=== PATIENT | male | born 1960 | race American Indian/Alaskan Native ===

== ENCOUNTER 2018-11-21 14:39 | Inpatient (IN) | payer MEDICARE ==
[2018-11-21 16:01] LABS: BASO # 0.1 K/uL (0.0-0.2); BASO % 1.7 % (0.0-2.0); EOS # 0.1 K/uL (0.0-0.7); LYMPH # 1.5 K/uL (1.0-4.3); LYMPH % 24.1 % (20.0-40.0); MEAN CORPUSCULAR HEMOGLOBIN 29.5 pg (27.0-31.0); MEAN CORPUSCULAR HGB CONC 32.3 g/dL (33.0-37.0); MEAN PLATELET VOLUME 8.4 fL (7.2-11.7); MONO # 0.6 K/uL (0.0-0.8); MONO % 10.4 % (0.0-10.0); NEUT # 3.8 K/uL (1.8-7.0); NEUT % 62.8 % (50.0-75.0); NRBC % 0.1 % (0.0-2.0); RBC 4.56 Mil/uL (4.40-5.90)
[2018-11-21 16:06] LABS: HEMOGLOBIN 13.5 g/dL (12.0-18.0); MEAN CELL VOLUME 91.4 fL (80.0-94.0)
[2018-11-21 16:13] LABS: ALB/GLOB RATIO 1.1 (1.0-2.1); ALBUMIN 3.8 g/dL (3.5-5.0); BLOOD UREA NITROGEN 19 mg/dL (9-20); CALCIUM 8.4 mg/dl (8.6-10.4); GFR NON-AFRICAN AMERICAN 57
[2018-11-21 16:19] LABS: ALT/SGPT 29 U/L (21-72); AST/SGOT 55 U/L (17-59)
[2018-11-21 16:24] LABS: B-TYPE NATRIURETIC PEPTIDE 6520 pg/mL (0-900)
[2018-11-21] MEDS ORDERED: Iodixanol 320 MG/ML 100 ML BOTTLE IV ONE (16:47)
--- NOTE | 2018-11-21 17:37 | RAD ---
Date of service: 11/21/2018 PROCEDURE: CHEST RADIOGRAPH, 1 VIEW HISTORY: SOB COMPARISON: 03/25/2016 FINDINGS: LUNGS: Pulmonary vascular congestion/pulmonary edema. No discrete infiltrates. PLEURA: No pneumothorax or pleural fluid seen. CARDIOVASCULAR: No aortic atherosclerotic calcification present. Cardiomegaly. No evidence of acute, significant cardiovascular disease. Position/ configuration of pacemaker OSSEOUS STRUCTURES: No significant abnormalities. VISUALIZED UPPER ABDOMEN: Normal. OTHER FINDINGS: None. IMPRESSION: Cardiomegaly/CHF with pulmonary edema present.
--- NOTE | 2018-11-21 18:44 | CT ---
Date of service: 11/21/2018 PROCEDURE: CT Chest with contrast (Pulmonary Angiogram) HISTORY: Shortness of breath. Rule out PE. COMPARISON: None available. TECHNIQUE: Axial computed tomography images were obtained of the chest in the pulmonary arterial phase of enhancement. Coronal and sagittal reformatted images were created and reviewed. Intravenous contrast dose: Radiation dose: Total exam DLP = 594.34 mGy-cm. This CT exam was performed using one or more of the following dose reduction techniques: Automated exposure control, adjustment of the mA and/or kV according to patient size, and/or use of iterative reconstruction technique. FINDINGS: Note the study is slightly limited due to streak and beam hardening artifact arising from the left upper extremity which has not been moved from the field of view. This study is further limited by suboptimal opacification of the pulmonary arteries. PULMONARY ARTERIES: No definitive large central filling defects however the segmental and subsegmental branches are poorly opacified some of which are in fact are unopacified. The possibility of a distal branch pulmonary embolus cannot be excluded on this exam. AORTA: Ascending thoracic aorta measures approximately the 3.1 cm and descending thoracic aorta measures approximately 3.0 cm. No significant atherosclerotic calcified plaque. Pulmonary trunk measures approximately 3.9 cm. Rule out underlying pulmonary arterial hypertension. No acute findings. No thoracic aortic aneurysm. No aortic atherosclerotic calcification or mural plaque present. LUNGS: There appears to be mild pulmonary venous congestive changes with patchy areas of ground-glass opacity seen in the upper and lower lobes. PLEURAL SPACES: Unremarkable. No effusion or pneumothorax. HEART: Heart is markedly enlarged. No significant pericardial effusion. . LYMPH NODES: There are multiple small nonspecific mediastinal and prevascular lymph nodes. Trachea is midline and patent with no large central endoluminal lesions. BONES, CHEST WALL: Unremarkable. No fracture or destructive lesion OTHER FINDINGS: Bilateral changes of gynecomastia. IMPRESSION: Study due to streak and beam hardening artifact as well as suboptimal injection all opacification of the pulmonary arteries. No definitive large central filling defects however the segmental and subsegmental branches are poorly opacified some of which are in fact are unopacified. The possibility of a distal branch pulmonary embolus cannot be excluded on this exam. Mild pulmonary venous congestive changes with patchy ground-glass on opacity seen throughout the upper and lower lobes.
--- NOTE | 2018-11-21 20:26 | C.PDOC ---
History Of Present Illness 58 year old male presents to the ED for evaluation of dyspnea on exertion and shortness of breath which began 1-2 weeks ago. Patient denies chest pain. Patient has a past medical history of CHF with questionable compliance with medications. He denies fever, chills, cough. Chief Complaint (Nursing): Shortness Of Breath History Per: Patient History/Exam Limitations: no limitations Onset/Duration Of Symptoms: Other (1-2 weeks ) Current Symptoms Are (Timing): Still Present Quality: denies: "Pain" Current Respiratory Medications: See Home Med List Associated Symptoms: denies: Fever, Chills, Chest Pain, Bloody Cough, Productive Cough Additional History Per: Patient Past Medical History Reviewed: Historical Data, Nursing Documentation, Vital Signs Vital Signs: Last Vital Signs Temp 97.9 F 11/21/18 20:19 Pulse 108 H 11/21/18 20:19 Resp 24 11/21/18 20:19 BP 112/80 11/21/18 20:19 Pulse Ox 98 11/21/18 20:19 - Medical History PMH: CHF, HTN Surgical History: Pacemaker (insertion and reinsertion due to failure.) - [facility] Procedures BONE MARROW BIOPSY (08/17/05) CLOSURE SKIN & SUBCUTANEOUS NEC (04/20/02) CYSTOSCOPY NEC (08/17/05) LYMPHATIC STRUCT BIOPSY (08/17/05) MAGNETIC RESONANCE IMAGING OF BRAIN AND BRAIN STEM (04/29/05) MAGNETIC RESONANCE IMAGING OF SPINAL CANAL (11/30/06) OTH NONOPER CARD AND VASC MEASURE (07/25/13) OTHER C.A.T. SCAN (08/17/05) RETROGRADE PYELOGRAM (08/17/05) SPINAL TAP (04/29/05) URETERAL CATHETERIZATION (08/17/05) Family History: States: Unknown Family Hx - Social History Hx Alcohol Use: No Hx Substance Use: No - Immunization History Hx Tetanus Toxoid Vaccination: No Hx Influenza Vaccination: No Hx Pneumococcal Vaccination: No Review Of Systems Constitutional: Negative for: Fever, Chills Cardiovascular: Negative for: Chest Pain Respiratory: Positive for: Shortness of Breath, Other (dyspnea on exertion ). Negative for: Cough Physical Exam - Physical Exam Appears: Non-toxic, No Acute Distress Skin: Normal Color, Warm, Dry Head: Atraumatic, Normacephalic Eye(s): bilateral: Normal Inspection Oral Mucosa: Moist Neck: Supple Chest: Symmetrical, No Deformity, No Tenderness Cardiovascular: Rhythm Regular, No Murmur Respiratory: Rales (at bilateral bases ), No Rhonchi, No Wheezing Gastrointestinal/Abdominal: Soft, No Tenderness, No Guarding, No Rebound Extremity: Normal ROM, Capillary Refill (less than 2 seconds ), Other (2+ pitting edema to bilateral lower extremities ) Pulses: Left Dorsalis Pedis: Normal, Right Dorsalis Pedis: Normal Neurological/Psych: Oriented x3, Normal Speech, Normal Cognition ED Course And Treatment - Laboratory Results Result Diagrams: 11/21/18 15:52 11/21/18 15:52 Lab Results: D-Dimer, Quantitative 510 ng/mlDDU (0-243) H 11/21/18 15:52 Troponin I 0.0480 ng/mL (0.00-0.120) 11/21/18 15:52 NT-Pro-B Natriuret Pep 6520 pg/mL (0-900) H 11/21/18 15:52 Total Bilirubin 1.2 mg/dL (0.2-1.3) 11/21/18 15:52 AST 55 U/L (17-59) 11/21/18 15:52 ALT 29 U/L (21-72) 11/21/18 15:52 Alkaline Phosphatase 77 U/L (38-126) 11/21/18 15:52 Total Protein 7.3 g/dL (6.3-8.3) 11/21/18 15:52 Albumin 3.8 g/dL (3.5-5.0) 11/21/18 15:52 Globulin 3.5 gm/dL (2.2-3.9) 11/21/18 15:52 Albumin/Globulin Ratio 1.1 (1.0-2.1) 11/21/18 15:52 O2 Sat by Pulse Oximetry: 98 (on RA) Pulse Ox Interpretation: Normal Medical Decision Making Medical Decision Making: Progress: Bloodwork, CXR, EKG, CT Angio Chest ordered and reviewed. Lasix IVP given. Disposition - Disposition Disposition: HOSPITALIZED Disposition Time: 18:45 Condition: FAIR - Clinical Impression Clinical Impression: Acute exacerbation of CHF (congestive heart failure) - Scribe Statement The provider has reviewed the documentation as recorded by the Scribe (Miranda Harrington) Provider Attestation: All medical record entries made by the Scribe were at my direction and personally dictated by me. I have reviewed the chart and agree that the record accurately reflects my personal performance of the history, physical exam, medical decision making, and the department course for this patient. I have also personally directed, reviewed, and agree with the discharge instructions and disposition.
[2018-11-21] MEDS ORDERED: Glucagon Recombinant 1 mg Inj IM PRN (21:11)
[2018-11-21] MEDS ORDERED: Dextrose 50% SYRINGE Inj (50 ml) IV PRN (21:11)
[2018-11-21] MEDS: (Novolog) Insulin Aspart, Recombinant 100 u/ml 10 ml vial SC SCH (22:27)
[2018-11-21] MEDS: Potassium Chloride 20 mEq ER Tab PO SCH (22:37)
[2018-11-22] MEDS: (Novolog) Insulin Aspart, Recombinant 100 u/ml 10 ml vial SC SCH ×4 (08:02→21:56)
[2018-11-22] MEDS: Fluticasone-Vilanterol 200/25mcg Diskus INH SCH (10:21)
[2018-11-22] MEDS: Potassium Chloride 20 mEq ER Tab PO SCH ×2 (11:05→21:55)
--- NOTE | 2018-11-22 16:35 | CP.PCM.HP ---
History of Present Illness - History of Present Illness History of Present Illness: 58 year old male with multiple medical problems presents progressively worsenig dyspnea on exertion and shortness of breath at rest which began 1-2 weeks ago. Patient denies chest pain. Patient has a past medical history of CHF with qu estionable compliance with medications. He denies fever, chills, cough. Present on Admission - Present on Admission Any Indicators Present on Admission: No History of DVT/PE: No History of Uncontrolled Diabetes: No Urinary Catheter: No Decubitus Ulcer Present: No Review of Systems - Review of Systems All systems: reviewed and no additional remarkable complaints except (as mentioned in HPI) Past Patient History - Infectious Disease Hx of Infectious Diseases: None - Past Medical History & Family History Past Medical History?: Yes - Past Social History Smoking Status: Never Smoked - CARDIAC Hx Congestive Heart Failure: Yes Hx Hypertension: Yes - NEUROLOGICAL Other/Comment: Hx of brain tumor with surgery . - ENDOCRINE/METABOLIC Hx Diabetes Mellitus Type 2: Yes - HEMATOLOGICAL/ONCOLOGICAL Other/Comment: Hx of Brain tumor with sx. - MUSCULOSKELETAL/RHEUMATOLOGICAL Hx Falls: Yes - GASTROINTESTINAL Other/Comment: Endoscopy,Colonoscopy,Colon Problem. - PSYCHIATRIC Hx Substance Use: No - SURGICAL HISTORY Hx Surgeries: Yes Other/Comment: Brain tumor with surgery. pacemaker x 2, insertion and with reinsertion due to failure. - ANESTHESIA Hx Anesthesia: Yes Hx Anesthesia Reactions: No Hx Malignant Hyperthermia: No Has any member of the family had a problem w/ anesthesia?: No Meds Allergies/Adverse Reactions: Allergies Allergy/AdvReac Type Severity Reaction Status Date / Time No Known Allergies Allergy Verified 03/25/16 18:11 Physical Exam - Head Exam Head Exam: NORMAL INSPECTION - Eye Exam Eye Exam: Normal appearance - ENT Exam ENT Exam: Mucous Membranes Moist - Respiratory Exam Respiratory Exam: Decreased Breath Sounds, Rhonchi - Cardiovascular Exam Cardiovascular Exam: REGULAR RHYTHM, +S1, +S2 - GI/Abdominal Exam GI & Abdominal Exam: Normal Bowel Sounds, Soft - Extremities Exam Extremities exam: Positive for: pedal edema - Neurological Exam Neurological exam: Alert, Oriented x3 Results - Vital Signs Recent Vital Signs: Last Vital Signs Temp 97.5 F L 11/22/18 10:59 Pulse 108 H 11/22/18 10:59 Resp 20 11/22/18 10:59 BP 110/79 11/22/18 11:06 Pulse Ox 98 11/22/18 10:59 - Labs Result Diagrams: 11/21/18 15:52 11/21/18 15:52 Labs: Laboratory Results - last 24 hr 11/21/18 11/22/18 11/22/18 21:20 06:37 07:41 APTT 41 H POC Glucose (mg/dL) 106 101 11/22/18 11:11 APTT POC Glucose (mg/dL) 158 H Assessment & Plan (1) Acute exacerbation of CHF (congestive heart failure) Status: Acute (2) HTN (hypertension) Status: Acute (3) Diabetes Status: Acute (4) MIGUELITO (obstructive sleep apnea) Status: Acute (5) COPD (chronic obstructive pulmonary disease) Status: Acute - Assessment and Plan (Free Text) Plan: Lasix 40 mg IV Q 12hrs Cardiology Consult Breo Ellipta Coreg Losartan Accu chek Insulin Amaryl Follow electrolytes DVT/GI prophalaxis
--- NOTE | 2018-11-22 16:43 | CARD ---
APPROVED REPORT Date of service: 11/22/2018 EXAM: Two-dimensional and M-mode echocardiogram with Doppler and color Doppler. Other Information Quality : GoodRhythm : INDICATION Dyspnea Congestive Heart Failure Surgery/Intervention Pacemaker: 2D DIMENSIONS IVSd1.0 (0.7-1.1cm)LVDd6.2 (3.9-5.9cm) PWd1.0 (0.7-1.1cm)LA [id number] (18-58mL) LVDs5.9 (2.5-4.0cm)FS (%) 4.6 % LVEF (%)10.1 (>50%)LVEF (Sofia's)17.68 % IVC0.00 cm M-Mode DIMENSIONS RVDd3.63 (2.1-3.2cm)Left Atrium (MM)5.08 (2.5-4.0cm) IVSd1.11 (0.7-1.1cm)Aortic Root3.46 (2.2-3.7cm) LVDd6.18 (4.0-5.6cm)Aortic Cusp Exc.2.16 (1.5-2.0cm) PWd1.44 (0.7-1.1cm)FS (%) 8 % LVDs5.69 (2.0-3.8cm)TAPSE16.70 cm LVEF (%)17 (>50%) Aortic Valve AI P 1/2 [id number] Mitral Valve MV E Vvkqvtov58.0cm/sMV A Ncjaiwih94.3cm/sE/A ratio2.6 LMYS473.57 cm/s TDI Lateral E' Peak V2.62cm/sMedial E' Peak V2.82cm/sE/Lateral E'25.6 E/Medial E'23.8 Tricuspid Valve TR Peak Dejndmip014ld/sTR Peak Gr.68zqKxZFFR30wgVv LEFT VENTRICLE The Left Ventricle is moderately dilated. There is normal left ventricular wall thickness. The systolic function is severely impaired. Significant regional wall motion abnormalities noted. The apical thrombus is medium. RIGHT VENTRICLE The right ventricle is moderately dilated and severly hypokinetic There is normal right ventricular wall thickness. There is a pacemaker lead in the right ventricle. ATRIA The left atrium is moderately dilated. The right atrium is moderately dilated. AORTIC VALVE The aortic valve is mildly thickened. There is mild aortic regurgitation. There is no aortic valvular stenosis. MITRAL VALVE The mitral valve is mildly thickened. There is no mitral valve stenosis. Mitral regurgitation is moderate. TRICUSPID VALVE There is severe tricuspid regurgitation. There is severe pulmonary hypertension. PULMONIC VALVE There is mild pulmonic valvular regurgitation. GREAT VESSELS The aortic root is normal in size. The IVC is dilated. PERICARDIAL EFFUSION There is no pericardial effusion. <Conclusion> The Left Ventricle is moderately dilated. There is normal left ventricular wall thickness. The systolic function is severely impaired. Significant regional wall motion abnormalities noted. The apical thrombus is medium. The right ventricle is moderately dilated and severly hypokinetic There is mild aortic regurgitation. Mitral regurgitation is moderate. There is severe tricuspid regurgitation. There is severe pulmonary hypertension. There is mild pulmonic valvular regurgitation.
[2018-11-22] MEDS: Digoxin 125 mcg (0.125 mg) Tab PO SCH (18:53)
--- NOTE | 2018-11-22 20:21 | CARD ---
APPROVED REPORT Date of service: 11/21/2018 EKG Measurement Heart [id number] [place] [id number] [id number] <Conclusion> Sinus tachycardia Nonspecific intraventricular block Nonspecific T wave abnormality Abnormal ECG
--- NOTE | 2018-11-22 22:09 | CP.PCM.CON ---
History of Present Illness - History of Present Illness History of Present Illness: 58 year old male presents to the ED for evaluation of dyspnea on exertion and shortness of breath which began 1-2 weeks ago. Patient denies chest pain. Patient has a past medical history of CHF with questionable compliance with medications. He denies fever, chills, cough. Chief Complaint (Nursing): Shortness Of Breath History Per: Patient History/Exam Limitations: no limitations Onset/Duration Of Symptoms: Other (1-2 weeks ) Current Symptoms Are (Timing): Still Present Quality: denies: "Pain" Current Respiratory Medications: See Home Med List Associated Symptoms: denies: Fever, Chills, Chest Pain, Bloody Cough, Productive Cough Additional History Per: Patient - Medical History PMH: CHF, HTN Surgical History: AICD (insertion and reinsertion due to failure.) - [facility] Procedures BONE MARROW BIOPSY (08/17/05) CLOSURE SKIN & SUBCUTANEOUS NEC (04/20/02) CYSTOSCOPY NEC (08/17/05) LYMPHATIC STRUCT BIOPSY (08/17/05) MAGNETIC RESONANCE IMAGING OF BRAIN AND BRAIN STEM (04/29/05) MAGNETIC RESONANCE IMAGING OF SPINAL CANAL (11/30/06) OTH NONOPER CARD AND VASC MEASURE (07/25/13) OTHER C.A.T. SCAN (08/17/05) RETROGRADE PYELOGRAM (08/17/05) SPINAL TAP (04/29/05) URETERAL CATHETERIZATION (08/17/05) Family History: States: Unknown Family Hx - Social History Hx Alcohol Use: No Hx Substance Use: No - Immunization History Hx Tetanus Toxoid Vaccination: No Hx Influenza Vaccination: No Hx Pneumococcal Vaccination: No Review Of Systems Constitutional: Negative for: Fever, Chills Cardiovascular: Negative for: Chest Pain Respiratory: Positive for: Shortness of Breath, Other (dyspnea on exertion ). Negative for: Cough Physical Exam - Physical Exam Appears: Non-toxic, No Acute Distress Skin: Normal Color, Warm, Dry Head: Atraumatic, Normacephalic Eye(s): bilateral: Normal Inspection Oral Mucosa: Moist Neck: Supple Chest: Symmetrical, No Deformity, No Tenderness Cardiovascular: Rhythm Regular, No Murmur Respiratory: Rales (at bilateral bases ), No Rhonchi, No Wheezing Gastrointestinal/Abdominal: Soft, No Tenderness, No Guarding, No Rebound Extremity: Normal ROM, Capillary Refill (less than 2 seconds ), Other (2+ pit ting edema to bilateral lower extremities ) Pulses: Left Dorsalis Pedis: Normal, Right Dorsalis Pedis: Normal Neurological/Psych: Oriented x3, Normal Speech, Normal Cognition Past Patient History - Infectious Disease Hx of Infectious Diseases: None - Past Medical History & Family History Past Medical History?: Yes - Past Social History Smoking Status: Never Smoked - CARDIAC Hx Congestive Heart Failure: Yes Hx Hypertension: Yes - NEUROLOGICAL Other/Comment: Hx of brain tumor with surgery . - ENDOCRINE/METABOLIC Hx Diabetes Mellitus Type 2: Yes - HEMATOLOGICAL/ONCOLOGICAL Other/Comment: Hx of Brain tumor with sx. - MUSCULOSKELETAL/RHEUMATOLOGICAL Hx Falls: Yes - GASTROINTESTINAL Other/Comment: Endoscopy,Colonoscopy,Colon Problem. - PSYCHIATRIC Hx Substance Use: No - SURGICAL HISTORY Hx Surgeries: Yes Other/Comment: Brain tumor with surgery. pacemaker x 2, insertion and with reinsertion due to failure. - ANESTHESIA Hx Anesthesia: Yes Hx Anesthesia Reactions: No Hx Malignant Hyperthermia: No Has any member of the family had a problem w/ anesthesia?: No Meds Allergies/Adverse Reactions: Allergies Allergy/AdvReac Type Severity Reaction Status Date / Time No Known Allergies Allergy Verified 03/25/16 18:11 - Medications Medications: Current Medications Alprazolam (Xanax) 1 mg PO Q8 PRN PRN Reason: Anxiety Last Admin: 11/22/18 19:27 Dose: 1 mg Carvedilol (Coreg) 12.5 mg PO Q12 [facility] Last Admin: 11/22/18 21:54 Dose: 12.5 mg Dextrose (Dextrose 50% Inj) 0 ml IV STAT PRN; Protocol PRN Reason: Hypoglycemia Protocol Dextrose (Glutose 15) 0 gm PO ONCE PRN; Protocol PRN Reason: Hypoglycemia Protocol Digoxin (Digoxin) 0.125 mg PO DAILY@1800 [facility] Last Admin: 11/22/18 18:53 Dose: 0.125 mg Fluticasone/Vilanterol (Breo Ellipta 200-25 Mcg Inh) 1 puff INH RQD [facility] Last Admin: 11/22/18 10:21 Dose: Not Given Fluticasone/Vilanterol (Breo Ellipta 100-25 Mcg Inh) 1 puff INH RQD [facility] Furosemide (Lasix) 40 mg IVP Q12 [facility] Last Admin: 11/22/18 21:55 Dose: 40 mg Gabapentin (Neurontin) 100 mg PO TID [facility] Last Admin: 11/22/18 17:54 Dose: 100 mg Glimepiride (Amaryl) 4 mg PO ACB [facility] Last Admin: 11/22/18 08:30 Dose: 4 mg Glucagon (Glucagen Diagnostic Kit) 0 mg IM STAT PRN; Protocol PRN Reason: Hypoglycemia Protocol Heparin Sodium (Porcine) (Heparin) 5,000 units SC Q8 [facility] Last Admin: 11/22/18 21:54 Dose: 5,000 units Dextrose (Dextrose 5% In Water 1000 Ml) 1,000 mls @ 0 mls/hr IV .Q0M PRN; Protocol PRN Reason: Hypoglycemia Protocol Insulin Aspart (Novolog) 0 unit SC ACHS [facility]; Protocol Last Admin: 11/22/18 21:56 Dose: Not Given Losartan Potassium (Cozaar) 50 mg PO BID [facility] Last Admin: 11/22/18 18:52 Dose: Not Given Pneumococcal Polyvalent Vaccine (Pneumovax 23 Vaccine) 0.5 ml IM .ONCE ONE Stop: 11/24/18 10:01 Potassium Chloride (K-Dur 20 Meq Er Tab) 20 meq PO Q12 [facility] Last Admin: 11/22/18 21:55 Dose: 20 meq Results - Vital Signs Recent Vital Signs: Last Vital Signs Temp 97.3 F L 11/22/18 15:24 Pulse 95 H 11/22/18 19:25 Resp 20 11/22/18 19:25 BP 113/77 11/22/18 21:55 Pulse Ox 100 11/22/18 19:25 - Labs Result Diagrams: 11/21/18 15:52 11/21/18 15:52 Labs: Laboratory Results - last 24 hr 11/21/18 11/22/18 11/22/18 21:20 06:37 07:41 APTT 41 H POC Glucose (mg/dL) 106 101 11/22/18 11/22/18 11:11 16:51 APTT POC Glucose (mg/dL) 158 H 223 H Assessment & Plan - Assessment and Plan (Free Text) Assessment: (1) Congestive heart failure. Acute on Chronic systolic ( Non ische CMP s/p AICD) Assessment and Plan: Pt will continue diuresis for acute on Chronic sytolic chf exacerbation continue chf meds lifestyle modification Status: Acute (2) Pneumonia Status: Acute
[2018-11-23] MEDS ORDERED: Albuterol-Ipratrop 3 mg / 0.5 (3 ml) UD INH STA (01:29)
[2018-11-23] MEDS ORDERED: Fluticasone-Vilanterol 100/25mcg Diskus INH SCH (08:00)
[2018-11-23] MEDS: (Novolog) Insulin Aspart, Recombinant 100 u/ml 10 ml vial SC SCH ×4 (08:00→22:08)
[2018-11-23 08:06] LABS: BASO % 0.7 % (0.0-2.0); EOS # 0.1 K/uL (0.0-0.7); EOS % 0.8 % (0.0-4.0); HEMOGLOBIN 13.4 g/dL (12.0-18.0); LYMPH # 1.6 K/uL (1.0-4.3); LYMPH % 26.5 % (20.0-40.0); MEAN CELL VOLUME 91.3 fL (80.0-94.0); MEAN CORPUSCULAR HEMOGLOBIN 29.9 pg (27.0-31.0); MEAN CORPUSCULAR HGB CONC 32.7 g/dL (33.0-37.0); MEAN PLATELET VOLUME 8.8 fL (7.2-11.7); MONO # 0.6 K/uL (0.0-0.8); MONO % 10.1 % (0.0-10.0); NEUT # 3.7 K/uL (1.8-7.0); NEUT % 61.9 % (50.0-75.0); NRBC % 0.1 % (0.0-2.0); RBC 4.48 Mil/uL (4.40-5.90); RED CELL DISTRIBUTION WIDTH 18.3 % (11.5-14.5)
[2018-11-23 08:18] LABS: ALB/GLOB RATIO 1.2 (1.0-2.1); ALBUMIN 3.6 g/dL (3.5-5.0); ALT/SGPT 28 U/L (21-72); AST/SGOT 36 U/L (17-59); BLOOD UREA NITROGEN 25 mg/dL (9-20); CALCIUM 8.2 mg/dl (8.6-10.4); GFR NON-AFRICAN AMERICAN 57
[2018-11-23] MEDS: Fluticasone-Vilanterol 200/25mcg Diskus INH SCH (08:38)
[2018-11-23] MEDS: Magnesium Sulfate 1 gm in D5W 1 GM/100 ML BAG IVPB SCH ×4 (09:13→11:19)
[2018-11-23] MEDS: Potassium Chloride 20 mEq ER Tab PO SCH ×2 (09:19→21:34)
[2018-11-23] MEDS ORDERED: Digoxin 125 mcg (0.125 mg) Tab PO SCH (10:00)
--- NOTE | 2018-11-23 14:46 | CP.PCM.PN ---
Subjective - Date & Time of Evaluation Date of Evaluation: 11/23/18 Time of Evaluation: 14:45 - Subjective Subjective: Patient is seen and examined Reports to be symptomatically better Objective - Vital Signs/Intake and Output Vital Signs (last 24 hours): Temp Pulse Resp BP Pulse Ox 97.3 F L 95 H 20 107/71 100 11/23/18 07:15 11/23/18 07:15 11/23/18 07:15 11/23/18 09:21 11/23/18 07:15 Intake and Output: 11/23/18 11/23/18 06:59 18:59 Intake Total 600 Output Total 600 Balance 0 - Medications Medications: Current Medications Alprazolam (Xanax) 2 mg PO Q12 PRN PRN Reason: Anxiety Last Admin: 11/23/18 11:28 Dose: 2 mg Carvedilol (Coreg) 12.5 mg PO Q12 [facility] Last Admin: 11/23/18 09:20 Dose: 12.5 mg Dextrose (Dextrose 50% Inj) 0 ml IV STAT PRN; Protocol PRN Reason: Hypoglycemia Protocol Dextrose (Glutose 15) 0 gm PO ONCE PRN; Protocol PRN Reason: Hypoglycemia Protocol Digoxin (Digoxin) 0.125 mg PO DAILY@1800 [facility] Last Admin: 11/22/18 18:53 Dose: 0.125 mg Fluticasone/Vilanterol (Breo Ellipta 200-25 Mcg Inh) 1 puff INH RQD [facility] Last Admin: 11/23/18 08:38 Dose: 1 puff Fluticasone/Vilanterol (Breo Ellipta 100-25 Mcg Inh) 1 puff INH RQD [facility] Furosemide (Lasix) 40 mg IVP Q12 [facility] Last Admin: 11/23/18 09:21 Dose: 40 mg Gabapentin (Neurontin) 100 mg PO TID [facility] Last Admin: 11/23/18 09:20 Dose: 100 mg Glimepiride (Amaryl) 4 mg PO ACB [facility] Last Admin: 11/23/18 08:50 Dose: 4 mg Glucagon (Glucagen Diagnostic Kit) 0 mg IM STAT PRN; Protocol PRN Reason: Hypoglycemia Protocol Heparin Sodium (Porcine) (Heparin) 5,000 units SC Q8 [facility] Last Admin: 11/23/18 05:56 Dose: 5,000 units Dextrose (Dextrose 5% In Water 1000 Ml) 1,000 mls @ 0 mls/hr IV .Q0M PRN; Protocol PRN Reason: Hypoglycemia Protocol Insulin Aspart (Novolog) 0 unit SC ACHS [facility]; Protocol Last Admin: 11/23/18 08:00 Dose: Not Given Losartan Potassium (Cozaar) 50 mg PO BID [facility] Last Admin: 11/23/18 10:24 Dose: 50 mg Pneumococcal Polyvalent Vaccine (Pneumovax 23 Vaccine) 0.5 ml IM .ONCE ONE Stop: 11/24/18 10:01 Potassium Chloride (K-Dur 20 Meq Er Tab) 20 meq PO Q12 [facility] Last Admin: 11/23/18 09:19 Dose: 20 meq - Labs Labs: 11/23/18 07:49 11/23/18 07:49 APTT 41 SECONDS (21-34) H 11/22/18 07:41 - Head Exam Head Exam: NORMAL INSPECTION - Eye Exam Eye Exam: Normal appearance - ENT Exam ENT Exam: Mucous Membranes Moist - Respiratory Exam Respiratory Exam: Rhonchi - Cardiovascular Exam Cardiovascular Exam: REGULAR RHYTHM, +S1, +S2 - GI/Abdominal Exam GI & Abdominal Exam: Soft, Normal Bowel Sounds - Extremities Exam Extremities Exam: Normal Inspection Assessment and Plan (1) Acute exacerbation of CHF (congestive heart failure) Status: Acute (2) HTN (hypertension) Status: Acute (3) Diabetes Status: Acute (4) MIGUELITO (obstructive sleep apnea) Status: Acute (5) COPD (chronic obstructive pulmonary disease) Status: Acute - Assessment and Plan (Free Text) Plan: Lasix Breo Ellipta Coreg Losartan Accu chek Insulin Amaryl Follow electrolytes DVT/GI prophalaxis
[2018-11-23] MEDS: Digoxin 125 mcg (0.125 mg) Tab PO SCH (18:03)
--- NOTE | 2018-11-23 19:09 | CP.PCM.PN ---
Subjective - Date & Time of Evaluation Date of Evaluation: 11/23/18 Time of Evaluation: 19:08 - Subjective Subjective: Still complains of SOB. Objective - Vital Signs/Intake and Output Vital Signs (last 24 hours): Temp Pulse Resp BP Pulse Ox 97.3 F L 91 H 20 95/74 L 100 11/23/18 07:15 11/23/18 07:35 11/23/18 07:15 11/23/18 18:04 11/23/18 07:15 - Medications Medications: Current Medications Alprazolam (Xanax) 2 mg PO Q12 PRN PRN Reason: Anxiety Last Admin: 11/23/18 11:28 Dose: 2 mg Carvedilol (Coreg) 12.5 mg PO Q12 [facility] Last Admin: 11/23/18 09:20 Dose: 12.5 mg Dextrose (Dextrose 50% Inj) 0 ml IV STAT PRN; Protocol PRN Reason: Hypoglycemia Protocol Dextrose (Glutose 15) 0 gm PO ONCE PRN; Protocol PRN Reason: Hypoglycemia Protocol Digoxin (Digoxin) 0.125 mg PO DAILY@1800 [facility] Last Admin: 11/23/18 18:03 Dose: 0.125 mg Fluticasone/Vilanterol (Breo Ellipta 200-25 Mcg Inh) 1 puff INH RQD [facility] Last Admin: 11/23/18 08:38 Dose: 1 puff Fluticasone/Vilanterol (Breo Ellipta 100-25 Mcg Inh) 1 puff INH RQD [facility] Furosemide (Lasix) 40 mg IVP Q12 [facility] Last Admin: 11/23/18 09:21 Dose: 40 mg Gabapentin (Neurontin) 100 mg PO TID [facility] Last Admin: 11/23/18 17:56 Dose: 100 mg Glimepiride (Amaryl) 4 mg PO ACB [facility] Last Admin: 11/23/18 08:50 Dose: 4 mg Glucagon (Glucagen Diagnostic Kit) 0 mg IM STAT PRN; Protocol PRN Reason: Hypoglycemia Protocol Heparin Sodium (Porcine) (Heparin) 5,000 units SC Q8 [facility] Last Admin: 11/23/18 14:52 Dose: 5,000 units Dextrose (Dextrose 5% In Water 1000 Ml) 1,000 mls @ 0 mls/hr IV .Q0M PRN; Protocol PRN Reason: Hypoglycemia Protocol Insulin Aspart (Novolog) 0 unit SC ACHS [facility]; Protocol Last Admin: 11/23/18 17:30 Dose: 3 units Losartan Potassium (Cozaar) 50 mg PO BID [facility] Last Admin: 11/23/18 18:04 Dose: Not Given Magnesium Oxide (Mag-Ox) 400 mg PO DAILY [facility] Stop: 11/26/18 10:01 Pneumococcal Polyvalent Vaccine (Pneumovax 23 Vaccine) 0.5 ml IM .ONCE ONE Stop: 11/24/18 10:01 Potassium Chloride (K-Dur 20 Meq Er Tab) 20 meq PO Q12 [facility] Last Admin: 11/23/18 09:19 Dose: 20 meq - Labs Labs: 11/23/18 07:49 11/23/18 07:49 APTT 41 SECONDS (21-34) H 11/22/18 07:41 - Head Exam Head Exam: NORMOCEPHALIC - Neck Exam Neck Exam: Normal Inspection - Respiratory Exam Respiratory Exam: NORMAL BREATHING PATTERN - Cardiovascular Exam Cardiovascular Exam: REGULAR RHYTHM - Extremities Exam Extremities Exam: Normal Inspection - Neurological Exam Neurological Exam: Alert, Oriented x3 Assessment and Plan (1) Acute exacerbation of CHF (congestive heart failure) Assessment & Plan: Improved, Diuresis. Maintain fluid and electrolyte balance. Status: Acute (2) COPD (chronic obstructive pulmonary disease) Assessment & Plan: Improving. Ambulate and assess O2 requirement. Status: Acute
[2018-11-24] MEDS: (Novolog) Insulin Aspart, Recombinant 100 u/ml 10 ml vial SC SCH ×4 (08:00→21:10)
[2018-11-24] MEDS: Fluticasone-Vilanterol 200/25mcg Diskus INH SCH (09:07)
[2018-11-24] MEDS ORDERED: Pneumococcal 23-Valent Vaccine IM ONE (10:00)
[2018-11-24] MEDS: Potassium Chloride 20 mEq ER Tab PO SCH ×2 (10:30→21:52)
[2018-11-24] MEDS: Magnesium Oxide 400 mg Tab UD PO SCH (10:30)
--- NOTE | 2018-11-24 14:58 | CP.PCM.PN ---
Subjective - Date & Time of Evaluation Date of Evaluation: 11/24/18 Time of Evaluation: 14:56 - Subjective Subjective: Feeling better, sitting in chair with supplemental O2. Objective - Vital Signs/Intake and Output Vital Signs (last 24 hours): Temp Pulse Resp BP Pulse Ox 99.0 F 80 18 104/68 100 11/24/18 07:10 11/24/18 07:10 11/24/18 07:10 11/24/18 10:28 11/24/18 07:10 Intake and Output: 11/24/18 11/24/18 06:59 18:59 Output Total 300 Balance -300 - Medications Medications: Current Medications Alprazolam (Xanax) 2 mg PO Q12 PRN PRN Reason: Anxiety Last Admin: 11/23/18 21:42 Dose: 2 mg Carvedilol (Coreg) 12.5 mg PO Q12 [facility] Last Admin: 11/24/18 10:28 Dose: 12.5 mg Dextrose (Dextrose 50% Inj) 0 ml IV STAT PRN; Protocol PRN Reason: Hypoglycemia Protocol Dextrose (Glutose 15) 0 gm PO ONCE PRN; Protocol PRN Reason: Hypoglycemia Protocol Digoxin (Digoxin) 0.125 mg PO DAILY@1800 [facility] Last Admin: 11/23/18 18:03 Dose: 0.125 mg Fluticasone/Vilanterol (Breo Ellipta 200-25 Mcg Inh) 1 puff INH RQD [facility] Last Admin: 11/24/18 09:07 Dose: 1 puff Fluticasone/Vilanterol (Breo Ellipta 100-25 Mcg Inh) 1 puff INH RQD [facility] Furosemide (Lasix) 40 mg IVP Q12 [facility] Last Admin: 11/24/18 10:28 Dose: 40 mg Gabapentin (Neurontin) 100 mg PO TID [facility] Last Admin: 11/24/18 14:34 Dose: 100 mg Glimepiride (Amaryl) 4 mg PO ACB [facility] Last Admin: 11/24/18 08:15 Dose: 4 mg Glucagon (Glucagen Diagnostic Kit) 0 mg IM STAT PRN; Protocol PRN Reason: Hypoglycemia Protocol Heparin Sodium (Porcine) (Heparin) 5,000 units SC Q8 [facility] Last Admin: 11/24/18 14:32 Dose: 5,000 units Dextrose (Dextrose 5% In Water 1000 Ml) 1,000 mls @ 0 mls/hr IV .Q0M PRN; Protocol PRN Reason: Hypoglycemia Protocol Insulin Aspart (Novolog) 0 unit SC ACHS [facility]; Protocol Last Admin: 11/24/18 12:10 Dose: 2 units Losartan Potassium (Cozaar) 50 mg PO BID [facility] Last Admin: 11/24/18 10:33 Dose: 50 mg Magnesium Oxide (Mag-Ox) 400 mg PO DAILY [facility] Stop: 11/26/18 10:01 Last Admin: 11/24/18 10:30 Dose: 400 mg Potassium Chloride (K-Dur 20 Meq Er Tab) 20 meq PO Q12 [facility] Last Admin: 11/24/18 10:30 Dose: 20 meq - Labs Labs: 11/23/18 07:49 11/23/18 07:49 APTT 41 SECONDS (21-34) H 11/22/18 07:41 - Head Exam Head Exam: NORMOCEPHALIC - Neck Exam Neck Exam: Normal Inspection - Respiratory Exam Respiratory Exam: NORMAL BREATHING PATTERN - Cardiovascular Exam Cardiovascular Exam: REGULAR RHYTHM - Extremities Exam Extremities Exam: Normal Inspection - Neurological Exam Neurological Exam: Alert, Oriented x3 Assessment and Plan (1) Acute exacerbation of CHF (congestive heart failure) Assessment & Plan: Fluid restriction and diuresis. Keep K.4 and Mg>2. Status: Acute (2) COPD (chronic obstructive pulmonary disease) Status: Acute
[2018-11-24] MEDS: Digoxin 125 mcg (0.125 mg) Tab PO SCH (17:28)
[2018-11-24 17:29] VITALS: PULSE 95
--- NOTE | 2018-11-24 18:32 | CP.PCM.PN ---
Subjective - Date & Time of Evaluation Date of Evaluation: 11/24/18 Time of Evaluation: 18:32 - Subjective Subjective: Patient is seen and examined No events overnight Lying flat in bed Reports improved dyspnea Objective - Vital Signs/Intake and Output Vital Signs (last 24 hours): Temp Pulse Resp BP Pulse Ox 97.3 F L 95 H 20 99/64 L 100 11/24/18 15:15 11/24/18 17:29 11/24/18 15:15 11/24/18 17:29 11/24/18 15:15 Intake and Output: 11/24/18 11/24/18 06:59 18:59 Output Total 300 Balance -300 - Medications Medications: Current Medications Alprazolam (Xanax) 2 mg PO Q12 PRN PRN Reason: Anxiety Last Admin: 11/23/18 21:42 Dose: 2 mg Carvedilol (Coreg) 12.5 mg PO Q12 [facility] Last Admin: 11/24/18 10:28 Dose: 12.5 mg Dextrose (Dextrose 50% Inj) 0 ml IV STAT PRN; Protocol PRN Reason: Hypoglycemia Protocol Dextrose (Glutose 15) 0 gm PO ONCE PRN; Protocol PRN Reason: Hypoglycemia Protocol Digoxin (Digoxin) 0.125 mg PO DAILY@1800 [facility] Last Admin: 11/24/18 17:28 Dose: 0.125 mg Fluticasone/Vilanterol (Breo Ellipta 200-25 Mcg Inh) 1 puff INH RQD [facility] Last Admin: 11/24/18 09:07 Dose: 1 puff Fluticasone/Vilanterol (Breo Ellipta 100-25 Mcg Inh) 1 puff INH RQD [facility] Furosemide (Lasix) 40 mg IVP Q12 [facility] Last Admin: 11/24/18 10:28 Dose: 40 mg Gabapentin (Neurontin) 100 mg PO TID [facility] Last Admin: 11/24/18 17:28 Dose: 100 mg Glimepiride (Amaryl) 4 mg PO ACB [facility] Last Admin: 11/24/18 08:15 Dose: 4 mg Glucagon (Glucagen Diagnostic Kit) 0 mg IM STAT PRN; Protocol PRN Reason: Hypoglycemia Protocol Heparin Sodium (Porcine) (Heparin) 5,000 units SC Q8 [facility] Last Admin: 11/24/18 14:32 Dose: 5,000 units Dextrose (Dextrose 5% In Water 1000 Ml) 1,000 mls @ 0 mls/hr IV .Q0M PRN; Protocol PRN Reason: Hypoglycemia Protocol Insulin Aspart (Novolog) 0 unit SC ACHS [facility]; Protocol Last Admin: 11/24/18 17:17 Dose: Not Given Losartan Potassium (Cozaar) 50 mg PO BID [facility] Last Admin: 11/24/18 17:28 Dose: Not Given Magnesium Oxide (Mag-Ox) 400 mg PO DAILY [facility] Stop: 11/26/18 10:01 Last Admin: 11/24/18 10:30 Dose: 400 mg Potassium Chloride (K-Dur 20 Meq Er Tab) 20 meq PO Q12 [facility] Last Admin: 11/24/18 10:30 Dose: 20 meq - Labs Labs: 11/23/18 07:49 11/23/18 07:49 APTT 41 SECONDS (21-34) H 11/22/18 07:41 - Head Exam Head Exam: NORMAL INSPECTION - Eye Exam Eye Exam: Normal appearance - ENT Exam ENT Exam: Mucous Membranes Moist - Respiratory Exam Respiratory Exam: Clear to Ausculation Bilateral - Cardiovascular Exam Cardiovascular Exam: REGULAR RHYTHM, +S1, +S2 - GI/Abdominal Exam GI & Abdominal Exam: Soft, Normal Bowel Sounds - Extremities Exam Extremities Exam: Pedal Edema Assessment and Plan (1) Acute exacerbation of CHF (congestive heart failure) Status: Acute (2) HTN (hypertension) Status: Acute (3) Diabetes Status: Acute (4) MIGUELITO (obstructive sleep apnea) Status: Acute (5) COPD (chronic obstructive pulmonary disease) Status: Acute - Assessment and Plan (Free Text) Plan: Lasix Breo Ellipta Coreg Losartan Accu chek Insulin Amaryl Follow electrolytes DVT/GI prophalaxis
[2018-11-25] MEDS: (Novolog) Insulin Aspart, Recombinant 100 u/ml 10 ml vial SC SCH ×2 (07:48→12:27)
[2018-11-25 08:24] LABS: BASO % 0.5 % (0.0-2.0); EOS # 0.1 K/uL (0.0-0.7); EOS % 0.9 % (0.0-4.0); HEMOGLOBIN 12.9 g/dL (12.0-18.0); LYMPH # 1.4 K/uL (1.0-4.3); LYMPH % 23.2 % (20.0-40.0); MEAN CELL VOLUME 91.8 fL (80.0-94.0); MEAN CORPUSCULAR HEMOGLOBIN 29.9 pg (27.0-31.0); MEAN CORPUSCULAR HGB CONC 32.6 g/dL (33.0-37.0); MEAN PLATELET VOLUME 9.1 fL (7.2-11.7); MONO # 0.6 K/uL (0.0-0.8); MONO % 9.6 % (0.0-10.0); NEUT % 65.8 % (50.0-75.0); RBC 4.33 Mil/uL (4.40-5.90); RED CELL DISTRIBUTION WIDTH 17.9 % (11.5-14.5); WHITE BLOOD COUNT 6.1 K/uL (4.8-10.8)
[2018-11-25 08:27] LABS: ALB/GLOB RATIO 1.1 (1.0-2.1); ALBUMIN 3.6 g/dL (3.5-5.0); ALT/SGPT 26 U/L (21-72); AST/SGOT 32 U/L (17-59); BLOOD UREA NITROGEN 26 mg/dL (9-20); CALCIUM 8.9 mg/dl (8.6-10.4); GFR NON-AFRICAN AMERICAN > 60
[2018-11-25] MEDS: Potassium Chloride 20 mEq ER Tab PO SCH (09:47)
[2018-11-25] MEDS: Magnesium Oxide 400 mg Tab UD PO SCH (09:47)
[2018-11-25] MEDS: Fluticasone-Vilanterol 200/25mcg Diskus INH SCH (10:35)
--- NOTE | 2018-11-25 15:35 | CP.PCM.PN ---
Subjective - Date & Time of Evaluation Date of Evaluation: 11/25/18 Time of Evaluation: 15:35 - Subjective Subjective: Patient is seen and examined No events overnight Objective - Vital Signs/Intake and Output Vital Signs (last 24 hours): Temp Pulse Resp BP Pulse Ox 97.1 F L 74 20 114/77 96 11/24/18 23:40 11/25/18 09:12 11/24/18 23:40 11/25/18 09:47 11/25/18 06:11 Intake and Output: 11/25/18 11/25/18 06:59 18:59 Intake Total 100 Output Total 500 Balance -400 - Medications Medications: Current Medications Alprazolam (Xanax) 2 mg PO Q12 PRN PRN Reason: Anxiety Last Admin: 11/25/18 06:14 Dose: 2 mg Carvedilol (Coreg) 12.5 mg PO Q12 [facility] Last Admin: 11/25/18 09:40 Dose: 12.5 mg Dextrose (Dextrose 50% Inj) 0 ml IV STAT PRN; Protocol PRN Reason: Hypoglycemia Protocol Dextrose (Glutose 15) 0 gm PO ONCE PRN; Protocol PRN Reason: Hypoglycemia Protocol Digoxin (Digoxin) 0.125 mg PO DAILY@1800 [facility] Last Admin: 11/24/18 17:28 Dose: 0.125 mg Fluticasone/Vilanterol (Breo Ellipta 200-25 Mcg Inh) 1 puff INH RQD [facility] Last Admin: 11/25/18 10:35 Dose: 1 puff Fluticasone/Vilanterol (Breo Ellipta 100-25 Mcg Inh) 1 puff INH RQD [facility] Furosemide (Lasix) 40 mg IVP Q12 [facility] Last Admin: 11/25/18 09:47 Dose: 40 mg Gabapentin (Neurontin) 100 mg PO TID [facility] Last Admin: 11/25/18 14:57 Dose: 100 mg Glimepiride (Amaryl) 4 mg PO ACB [facility] Last Admin: 11/25/18 07:45 Dose: 4 mg Glucagon (Glucagen Diagnostic Kit) 0 mg IM STAT PRN; Protocol PRN Reason: Hypoglycemia Protocol Insulin Aspart (Novolog) 0 unit SC ACHS [facility]; Protocol Last Admin: 11/25/18 12:27 Dose: Not Given Losartan Potassium (Cozaar) 50 mg PO BID [facility] Last Admin: 11/25/18 09:46 Dose: 50 mg Magnesium Oxide (Mag-Ox) 400 mg PO DAILY [facility] Stop: 11/26/18 10:01 Last Admin: 11/25/18 09:47 Dose: 400 mg Potassium Chloride (K-Dur 20 Meq Er Tab) 20 meq PO Q12 [facility] Last Admin: 11/25/18 09:47 Dose: 20 meq - Labs Labs: 11/25/18 08:03 11/25/18 08:03 APTT 41 SECONDS (21-34) H 11/22/18 07:41 - Head Exam Head Exam: NORMAL INSPECTION - Eye Exam Eye Exam: Normal appearance - ENT Exam ENT Exam: Mucous Membranes Moist - Respiratory Exam Respiratory Exam: Clear to Ausculation Bilateral - GI/Abdominal Exam GI & Abdominal Exam: Soft, Normal Bowel Sounds - Exam Exam: NORMAL INSPECTION - Extremities Exam Extremities Exam: Pedal Edema Assessment and Plan (1) Acute exacerbation of CHF (congestive heart failure) Status: Acute (2) HTN (hypertension) Status: Acute (3) Diabetes Status: Acute (4) MIGUELITO (obstructive sleep apnea) Status: Acute (5) COPD (chronic obstructive pulmonary disease) Status: Acute - Assessment and Plan (Free Text) Plan: Lasix Breo Ellipta Coreg Losartan Accu chek Insulin Amaryl Follow electrolytes Patient is reported to be hypoxemic on room air May need home oxygen Discharge home once arrangements are made DVT/GI prophalaxis
[2018-11-25 16:00] VITALS: RESP 18; O2SAT 99
--- NOTE | 2018-11-25 16:18 | PCM.HF ---
Heart Failure Core Measure - Heart Failure Ejection Fraction: Less Than 40 % SLIM Inhibitor Prescribed: Yes Beta-Estuardo Prescribed: Carvedilol Angiotensin II Receptor Estuardo Prescribed: No Contraindication/Reason for not providing: ON SLIM AnticoagulationTherapy for Atrial Fibrillation/Atrialflutter: No Contraindication/Reason for not providing: NO HX OF A FIB Aldosterone Antagonist Prescribed: No Contraindication/Reason for not providing: ON LASIX as per his [employer] Hydralazine Nitrate Prescribed: No Contraindication/Reason for not providing: bp low Implantable Cardioverter Defibrillator Therapy: No Contraindication/Reason for not providing: pt has pacemaker Cardiac Resynchronization Therapy Prescribed: No Contraindication/Reason for not providing: pt has pacemake r - Follow up Will be discharged to: Home Follow Up Date (must be within 7 days from discharge): 11/28/18 Follow Up Time: 13:00
[2018-11-25 16:42] VITALS: BP 119/78; PULSE 84; TEMP 97.8
--- NOTE | 2018-11-25 17:12 | CP.PCM.PN ---
Subjective - Date & Time of Evaluation Date of Evaluation: 11/25/18 Time of Evaluation: 15:00 - Subjective Subjective: patient seen today denies any chest pain, sob, dizziness, palpitations, headache,oob ambulating the pe[address] way, no dyspnea noted vss and labs reviewed - stable pulse ox checked with room air 99% and after ambulation - remains 94-96% Objective - Vital Signs/Intake and Output Vital Signs (last 24 hours): Temp Pulse Resp BP Pulse Ox 97.8 F 84 18 119/78 99 11/25/18 15:41 11/25/18 15:41 11/25/18 15:59 11/25/18 15:41 11/25/18 15:59 Intake and Output: 11/25/18 11/25/18 06:59 18:59 Intake Total 100 Output Total 500 Balance -400 - Medications Medications: Current Medications Alprazolam (Xanax) 2 mg PO Q12 PRN PRN Reason: Anxiety Last Admin: 11/25/18 16:14 Dose: 2 mg Carvedilol (Coreg) 12.5 mg PO Q12 [facility] Last Admin: 11/25/18 09:40 Dose: 12.5 mg Dextrose (Dextrose 50% Inj) 0 ml IV STAT PRN; Protocol PRN Reason: Hypoglycemia Protocol Dextrose (Glutose 15) 0 gm PO ONCE PRN; Protocol PRN Reason: Hypoglycemia Protocol Digoxin (Digoxin) 0.125 mg PO DAILY@1800 [facility] Last Admin: 11/24/18 17:28 Dose: 0.125 mg Fluticasone/Vilanterol (Breo Ellipta 200-25 Mcg Inh) 1 puff INH RQD [facility] Last Admin: 11/25/18 10:35 Dose: 1 puff Fluticasone/Vilanterol (Breo Ellipta 100-25 Mcg Inh) 1 puff INH RQD [facility] Furosemide (Lasix) 40 mg IVP Q12 [facility] Last Admin: 11/25/18 09:47 Dose: 40 mg Gabapentin (Neurontin) 100 mg PO TID [facility] Last Admin: 11/25/18 14:57 Dose: 100 mg Glimepiride (Amaryl) 4 mg PO ACB [facility] Last Admin: 11/25/18 07:45 Dose: 4 mg Glucagon (Glucagen Diagnostic Kit) 0 mg IM STAT PRN; Protocol PRN Reason: Hypoglycemia Protocol Insulin Aspart (Novolog) 0 unit SC ACHS [facility]; Protocol Last Admin: 11/25/18 12:27 Dose: Not Given Losartan Potassium (Cozaar) 50 mg PO BID [facility] Last Admin: 11/25/18 09:46 Dose: 50 mg Magnesium Oxide (Mag-Ox) 400 mg PO DAILY [facility] Stop: 11/26/18 10:01 Last Admin: 11/25/18 09:47 Dose: 400 mg Potassium Chloride (K-Dur 20 Meq Er Tab) 20 meq PO Q12 [facility] Last Admin: 11/25/18 09:47 Dose: 20 meq - Labs Labs: 11/25/18 08:03 11/25/18 08:03 APTT 41 SECONDS (21-34) H 11/22/18 07:41 Assessment and Plan - Assessment and Plan (Free Text) Assessment: A/P 58 yr old male with CHF, HTN, DM, pacemaker admitted with sob, dyspnea on exertion x 1 week admitted with exc. CHF, copd hypomagnesemia noted and corrected with magnesium supplement and WNL 1.8 patient clinically improved with lasix IV D/W Dr. Matute , cleared fro discharge home today and f/u with Dr. Lombardo , and Dr. Arredondo discharge plan discussed with patient , who understands and agrees with plan Patient instructed to returns to ED IF symptoms returns We will continue with magnesium oxide x 3 more days patient stated he has all RX except lasix rx given upon discharge
--- NOTE | 2018-11-25 23:57 | CP.PCM.PN ---
Subjective - Date & Time of Evaluation Date of Evaluation: 11/25/18 Time of Evaluation: 15:00 Objective - Vital Signs/Intake and Output Vital Signs (last 24 hours): Temp Pulse Resp BP Pulse Ox 97.8 F 84 18 119/78 99 11/25/18 15:41 11/25/18 15:41 11/25/18 15:59 11/25/18 15:41 11/25/18 15:59 - Labs Labs: 11/25/18 08:03 11/25/18 08:03 APTT 41 SECONDS (21-34) H 11/22/18 07:41 Assessment and Plan (1) Acute exacerbation of CHF (congestive heart failure) Status: Acute (2) HTN (hypertension) Status: Acute (3) Diabetes Status: Acute (4) MIGUELITO (obstructive sleep apnea) Status: Acute (5) COPD (chronic obstructive pulmonary disease) Status: Acute
--- NOTE | 2018-11-26 00:34 | CP.PCM.DIS ---
Provider - Provider Date of Admission: 11/21/18 19:02 Attending physician: Darrel Matute MD Consults: 11/21/18 21:10 Cardiology Consult Routine Comment: chf Consulting Provider: Mao Santana Consulting Physician: Mao Santana Reason for Consult: chf 11/22/18 02:51 Case Management Referral Routine Comment: New Admission Physician Instructions: Reason For Exam: Reason for Referral: Discharge Planning Inpatient SET UP [employer] Core Measures Referral Routine Comment: New Admission. Physician Instructions: Reason For Exam: Diagnosis CHF Exac.,C/O SOB. 11/22/18 03:08 Social Work Referral Routine Comment: New Admission. Physician Instructions: Reason For Exam: Score 9. 11/22/18 03:12 Nursing Referral for Palliative Care Routine Comment: New Admission. Physician Instructions: Reason For Exam: Score 7. [email or web address] 11/23/18 06:37 Cardiology Consult Routine Comment: Please notify Dr. Olsen Consulting Provider: Simone Olsen Consulting Physician: Simone Olsen Reason for Consult: Cardiology coverage. I am out of town till December 02 Time Spent in preparation of Discharge (in minutes): 35 Diagnosis - Discharge Diagnosis (1) Acute exacerbation of CHF (congestive heart failure) Status: Acute (2) HTN (hypertension) Status: Acute (3) Diabetes Status: Acute (4) MIGUELITO (obstructive sleep apnea) Status: Acute (5) COPD (chronic obstructive pulmonary disease) Status: Acute Hospital Course - Lab Results Lab Results: Most Recent Lab Values WBC 6.1 K/uL (4.8-10.8) 11/25/18 08:03 RBC 4.33 Mil/uL (4.40-5.90) L 11/25/18 08:03 Hgb 12.9 g/dL (12.0-18.0) 11/25/18 08:03 Hct 39.7 % (35.0-51.0) 11/25/18 08:03 MCV 91.8 fL (80.0-94.0) 11/25/18 08:03 MCH 29.9 pg (27.0-31.0) 11/25/18 08:03 MCHC 32.6 g/dL (33.0-37.0) L 11/25/18 08:03 RDW 17.9 % (11.5-14.5) H 11/25/18 08:03 Plt Count 240 K/uL (130-400) 11/25/18 08:03 MPV 9.1 fL (7.2-11.7) 11/25/18 08:03 Neut % (Auto) 65.8 % (50.0-75.0) 11/25/18 08:03 Lymph % (Auto) 23.2 % (20.0-40.0) 11/25/18 08:03 Ford % (Auto) 9.6 % (0.0-10.0) 11/25/18 08:03 Eos % (Auto) 0.9 % (0.0-4.0) 11/25/18 08:03 Baso % (Auto) 0.5 % (0.0-2.0) 11/25/18 08:03 Neut # (Auto) 4.0 K/uL (1.8-7.0) 11/25/18 08:03 Lymph # (Auto) 1.4 K/uL (1.0-4.3) 11/25/18 08:03 Ford # (Auto) 0.6 K/uL (0.0-0.8) 11/25/18 08:03 Eos # (Auto) 0.1 K/uL (0.0-0.7) 11/25/18 08:03 Baso # (Auto) 0.0 K/uL (0.0-0.2) 11/25/18 08:03 APTT 41 SECONDS (21-34) H 11/22/18 07:41 D-Dimer, Quantitative 510 ng/mlDDU (0-243) H 11/21/18 15:52 Sodium 137 mmol/L (132-148) 11/25/18 08:03 Potassium 3.7 mmol/L (3.6-5.2) 11/25/18 08:03 Chloride 101 mmol/L (98-107) 11/25/18 08:03 Carbon Dioxide 27 mmol/L (22-30) 11/25/18 08:03 Anion Gap 13 (10-20) 11/25/18 08:03 BUN 26 mg/dL (9-20) H 11/25/18 08:03 Creatinine 0.9 mg/dL (0.8-1.5) 11/25/18 08:03 Est GFR ( Amer) > 60 11/25/18 08:03 Est GFR (Non-Af Amer) > 60 11/25/18 08:03 POC Glucose (mg/dL) 175 mg/dL (65-110) H 11/25/18 16:58 Random Glucose 104 mg/dL (75-110) 11/25/18 08:03 Calcium 8.9 mg/dl (8.6-10.4) 11/25/18 08:03 Phosphorus 3.7 mg/dL (2.5-4.5) 11/23/18 07:49 Magnesium 1.8 mg/dL (1.6-2.3) 11/23/18 13:46 Total Bilirubin 1.6 mg/dL (0.2-1.3) H 11/25/18 08:03 AST 32 U/L (17-59) 11/25/18 08:03 ALT 26 U/L (21-72) 11/25/18 08:03 Alkaline Phosphatase 93 U/L (38-126) 11/25/18 08:03 Troponin I 0.0480 ng/mL (0.00-0.120) 11/21/18 15:52 NT-Pro-B Natriuret Pep 6520 pg/mL (0-900) H 11/21/18 15:52 Total Protein 6.9 g/dL (6.3-8.3) 11/25/18 08:03 Albumin 3.6 g/dL (3.5-5.0) 11/25/18 08:03 Globulin 3.3 gm/dL (2.2-3.9) 11/25/18 08:03 Albumin/Globulin Ratio 1.1 (1.0-2.1) 11/25/18 08:03 - Hospital Course Hospital Course: Complex patient with multiple medical problems presented with dyspnea with minimal exertion. Patient was initiated on Lasix by cardiology for CHF exacerbation. Review of records show recent cardiac evaluation was normal. Patient has reported EF of less than 30%. His condition improved and is discharged home in stable condition. Patient's room air oxygen is 95% and does not require home oxygen Discharge Exam - Head Exam Head Exam: NORMAL INSPECTION Discharge Plan - Discharge Medications Prescriptions: Carvedilol [Coreg] 12.5 mg PO Q12 #60 tab Furosemide [Lasix] 40 mg PO Q12 #60 tab Magnesium Oxide [Mag-Ox] 400 mg PO DAILY #5 tab - Follow Up Plan Condition: FAIR Disposition: HOME/ ROUTINE Instructions: Heart Healthy Diet, Diabetes Exchange Diet, Heart Failure, Adult (DC), Diabetes Diet , Carvedilol, Furosemide, Magnesium Oxide Additional Instructions: Please follow up with Dr. Covarrubias office on Wednesday Please follow up with Dr. Arredondo office in next week - call and make appointmen t please continue medication as per med. rec. please take all your medication with you when you go to your doctors office Referrals: Jose Guadalupe Arredondo MD [Staff Provider] -
== END 2018-11-25 18:47 | disposition home or self-care (01) | DRG 193 ==
LOC: C.ER 14:39 → C.9E 19:02 → C.6T 19:18
PROVIDERS: ADMIT Internal Medicine Critical Care Medicine; ATTEND Internal Medicine Critical Care Medicine
DX: J18.9 Pneumonia, unspecified organism (principal); I50.23 Acute on chronic systolic (congestive) heart failure; J44.0 Chronic obstructive pulmonary disease with (acute) lower respiratory infection; I11.0 Hypertensive heart disease with heart failure; E11.9 Type 2 diabetes mellitus without complications; G47.33 Obstructive sleep apnea (adult) (pediatric); Z95.0 Presence of cardiac pacemaker